=== PATIENT | female | born 1970 | race Hispanic/Latino ===

== ENCOUNTER 2021-10-30 13:16 | Emergency (ER) | payer OTHER, SELFPAY ==
--- NOTE | 2021-10-30 13:30 | ED.URI ---
HPI - URI/Sore Throat General Chief Complaint: Ear Stated Complaint: Sore Neck Time Seen by Provider: 10/30/21 13:31 Source: patient and RN notes reviewed Mode of arrival: ambulatory Limitations: no limitations History of Present Illness HPI Narrative: 51-year-old female presents to the [facility] with complaints of right ear discomfort and right trapezius muscle discomfort. No treatment prior to arrival, symptoms x2 to 3 days. pain with movement. COVID and flu vaccinated. No treatment prior to arrival Related Data Home Medications Medication Instructions Recorded Confirmed albuterol sulfate 2 puff INHALATION DIRECTED 10/30/21 10/30/21 bupropion HCl 300 mg PO BID 10/30/21 10/30/21 citalopram 10 mg PO DAILY 10/30/21 10/30/21 fluticasone propionate [Flovent 2 puff INHALATION DIRECTED 10/30/21 10/30/21 HFA] levothyroxine [Euthyrox] 112 mcg PO DAILY 10/30/21 10/30/21 montelukast 10 mg PO DAILY 10/30/21 10/30/21 omeprazole 20 mg PO DAILY 10/30/21 10/30/21 Allergies Allergy/AdvReac Type Severity Reaction Status Date / Time codeine Allergy Severe TONGUE Verified 10/30/21 13:20 SWELLING/LETHARGY/NAUSEA morphine AdvReac Severe SEVERE Verified 10/30/21 13:20 NAUSEA/VOMITING propoxyphene AdvReac Intermediate ITCHING Verified 10/30/21 13:20 Review of Systems Review of Systems: All systems reviewed & are unremarkable except as noted in HPI and below Constitutional: Constitutional: Reports no additional constitutional complaints, Denies chills and Denies fever(s) Eyes: Eyes: Reports no additional eye complaints ENT: Reports system reviewed and no additional complaints, except as documented, Reports as per HPI, Denies dizziness, Denies nasal congestion and Denies sore throat Comments: Right ear Cardiovascular: Cardiovascular: Reports no additional cardiovascular complaints and Denies chest pain Respiratory: Respiratory: Reports no additional respiratory complaints, Denies cough, Denies dyspnea and Denies wheezing Gastrointestinal: Gastrointestinal: Reports no additional gastrointestinal complaints, Denies abdominal pain, Denies diarrhea, Denies nausea and Denies vomiting Musculoskeletal: Musculoskeletal: Reports as per HPI Comments: Right trapezius muscle Integumentary/Breasts: Skin/Breast: Reports system reviewed and no additional complaints, except as docu and Denies rash Neurologic: Reports system reviewed and no additional complaints, except as documented, Denies headache(s), Denies focal weakness, Denies numbness and Denies weakness Psychiatric: Psychiatric: Reports no additional psychiatric complaints Allergic/Immunologic: Allergic/Immunologic: Reports no additional allergic/immunologic complaints PMFSH Past Medical History Medical History No significant medical problems Surgical History Surgical History (Updated 10/30/21 @ 19:21 by Yuliana Petit) No significant past surgical history Family History Family History Other Family history of arthritis Social History Social History Smoking status: Former smoker Alcohol intake: current Comments At the time of my signature, I reviewed and agree with the nursing past medical, surgical, social, and family history. There is no relevant family history pertinent to the patient complaint. Exam Const: General: healthy appearing, no acute distress and alert Nutritional Appearance: well nourished and obese Orientation/consciousness: patient oriented x3 Limitations: no limitations HENMT: Head: normal to inspection Ears: external ears normal, EAC's normal and TM abnormal with fluid behind the TM on the right; not dull, not erythematous and with no loss of landmarks General nose exam: Normal external nose present, Normal nares present, Normal nasal mucous membranes and turbinates present and No nasal
[2021-10-30 13:32] VITALS: BP 137/81; PULSE 76; RESP 20; TEMP 36.4; O2SAT 99
== END 2021-10-30 13:57 | disposition home or self-care (01) ==
PROVIDERS: Emergency Provider Nurse Practitioner; PCP Internal Medicine
DX: H69.91 Unspecified Eustachian tube disorder, right ear (principal); S16.1XXA Strain of muscle, fascia and tendon at neck level, initial encounter; X58.XXXA Exposure to other specified factors, initial encounter; Z87.891 Personal history of nicotine dependence
CPT/HCPCS: 99213; G0463